=== PATIENT | male | born 1955 | race Caucasian/White ===

== ENCOUNTER → 2018-06-25 | Outpatient (CLI) | payer MEDICARE, OTHER ==
--- NOTE | 2018-06-25 12:03 | NM ---
Nuclear medicine hepatobiliary scan. HISTORY: Pain. DOSAGE: The patient received 1.8 micrograms of CCK and 5.3 mCi of Technetium 99m Choletec. FINDINGS: There is normal hepatic extraction. The gallbladder is seen by 20 minutes. There is bilia ry to bowel clearance by 35 minutes. Ejection fraction is 88%. IMPRESSION: 1. Normal filling of radiotracer within the gallbladder. 2. Ejection fraction of 88% which can occasionally be seen with hyperdynamic gallbladder correlate cl inically.
== END | disposition home or self-care (01) ==
LOC: RADNMMAIN 06:56
PROVIDERS: ATTEND Surgery
DX: K82.8 Other specified diseases of gallbladder (principal)
CPT/HCPCS: 78227; A9537; J2805

== ENCOUNTER 2018-07-01 07:31 | Day surgery (SDC) | payer MEDICARE, OTHER ==
[~2018-07-01 07:31] MED LIST: LACTATED RINGERS 1,000 ML IV SCH; LIDOCAINE 1% 20 ML VIAL (10MG/ML) FOR IV START INTRADERMA PRN
[2018-07-01] MEDS ORDERED: PROPOFOL 10 MG/ML 20 ML VIAL IV ONE (08:26)
[2018-07-01] MEDS ORDERED: LIDOCAINE 1% INJ 10MG/ML (20 ML MDV) ONE (08:26)
--- NOTE | 2018-07-01 08:32 | P.GSHP ---
History of Present Illness H&P Date: 07/01/18 Chief Complaint: GERD This a 63-year-old male who's has issues with reflux. Patient's complaints of GERD symptoms for several years. He presents today for EGD. 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, hx of back pain, states had pancreatitis post ERCP History of Any Multi-Drug Resistant Organisms: None Reported Past Surgical History: Appendectomy, Back Surgery, Orthopedic Surgery Additional Past Surgical History / Comment(s): ERCP, ANTONIO FUNDLAPLICATION, RT KNEE MENISCUS REPAIR, LAMINECTOMY Past Anesthesia/Blood Transfusion Reactions: No Reported Reaction Smoking Status: Never smoker - Past Family History Mother Family Medical History: Cancer Additional Family Medical History / Comment(s): SKIN Father Family Medical History: Cancer Additional Family Medical History / Comment(s): SKIN Brother(s) Family Medical History: Cancer Additional Family Medical History / Comment(s): SKIN Sister(s) Family Medical History: Cancer Additional Family Medical History / Comment(s): SKIN Medications and Allergies Home Medications Medication Instructions Recorded Confirmed Type Gabapentin [Neurontin] 300 mg PO HS PRN 06/28/18 06/28/18 History Multivitamins, Thera [Multivitamin 1 tab PO DAILY 06/28/18 06/28/18 History (formulary)] Naproxen Sodium [Aleve] 220 mg PO Q6H PRN 06/28/18 06/28/18 History Omeprazole 40 mg PO DAILY 06/28/18 06/28/18 History Ondansetron [Zofran] 4 mg PO Q12HR PRN 06/28/18 07/01/18 History Tamsulosin HCl [Flomax] 0.4 mg PO DAILY 06/28/18 06/28/18 History Allergies Allergy/AdvReac Type Severity Reaction Status Date / Time cefuroxime [From Ceftin] Allergy Rash/Hives Verified 07/01/18 07:42 levofloxacin [From Levaquin] Allergy Rash/Hives Verified 07/01/18 07:42 pantoprazole [From Protonix] Allergy Rash/Hives Verified 07/01/18 07:42 prochlorperazine Allergy tongue Verified 07/01/18 07:42 [From Compazine] Swelling Surgical - Exam Vital Signs Temp Pulse Resp BP Pulse Ox 97.6 F 63 16 117/70 96 07/01/18 07:57 07/01/18 07:57 07/01/18 07:57 07/01/18 07:57 07/01/18 07:57 - General well developed, no distress - Eyes PERRL - ENT normal pinna - Neck no masses - Respiratory normal expansion - Cardiovascular Rhythm: regular - Abdomen Abdomen: soft, non tender Assessment and Plan Assessment: GERD. We'll perform EGD.
--- NOTE | 2018-07-01 08:40 | P.OP ---
Date of Procedure: 07/01/18 Preoperative Diagnosis: GERD Postoperative Diagnosis: Antral gastritis Procedure(s) Performed: EGD Anesthesia: MAC Surgeon: Kalia Workman Pathology: other (Antrum, esophagus) Condition: stable Disposition: PACU Description of Procedure: The patient's placed on the endoscopy table lateral position. He received IV sedation. The gastroscope placed oropharynx passed in the esophagus and stomach. Scope was then placed through the pylorus. The first and second portion of the duodenum appeared normal. Scope was then brought back the antrum and this appeared mildly inflamed. A biopsies performed. The scope was then retroflexed and the remainder of the stomach appeared normal. The GE junction was at 40 cm. The proximal esophagus appeared normal. Scope was withdrawn for patient... The distal esophagus appeared normal. A biopsies performed.
== END 2018-07-01 10:11 | disposition home or self-care (01) ==
LOC: ORWHC2ENDO 07:31
PROVIDERS: ATTEND Surgery
DX: K29.50 Unspecified chronic gastritis without bleeding (principal); K21.0 Gastro-esophageal reflux disease with esophagitis; N40.0 Benign prostatic hyperplasia without lower urinary tract symptoms; Z88.3 Allergy status to other anti-infective agents; Z88.8 Allergy status to other drugs, medicaments and biological substances; Z79.1 Long term (current) use of non-steroidal anti-inflammatories (NSAID); Z79.899 Other long term (current) drug therapy
CPT/HCPCS: 88305; 43239; J2001; J2704

== ENCOUNTER 2018-07-19 08:53 | Day surgery (SDC) | payer MEDICARE, OTHER ==
[2018-07-12 09:55] VITALS: BMI 25.0
[~2018-07-19 08:53] MED LIST changes: +DEXAMETHASONE SOD PHOSPHATE 10 MG/ML 1 ML VIAL IV ONE; +HEPARIN SODIUM,PORCINE 5,000 UNIT/ML 1 ML VIAL SQ ONE; -LACTATED RINGERS 1,000 ML IV SCH; +ONDANSETRON 4 MG/2 ML VIAL IVP ONE; +SCOPOLAMINE 1.5MG/72HR PATCH TRANSDERM ONE
[2018-07-19] MEDS: LACTATED RINGERS 1,000 ML IV SCH ×2 (09:31→10:49)
[2018-07-19] MEDS ORDERED: MIDAZOLAM 2 MG/2 ML VIAL IV ONE (09:49)
--- NOTE | 2018-07-19 10:25 | P.GSHP ---
History of Present Illness H&P Date: 07/19/18 Chief Complaint: Right upper quadrant pain This is a 63-year-old male referred from Dr. Cely bang. Patient presents today for laparoscopic cholecystectomy. He's had complaints of right upper quadrant pain. His recent HIDA scan shows abnormal ejection fraction consistent with biliary hypokinesis and chronic cholecystitis. Past Medical History Past Medical History: GERD/Reflux, Prostate Disorder Additional Past Medical History / Comment(s): GALLBLADDER DISORDER History of Any Multi-Drug Resistant Organisms: None Reported Past Surgical History: Appendectomy, Back Surgery, Hernia Repair, Orthopedic Surgery Additional Past Surgical History / Comment(s): EGD-07/01/18. YAIR. RT KNEE SX. VEIN STRIPPING LT LEG. LAMINECTOMY. COLONOSCOPY AND EGD'S Past Anesthesia/Blood Transfusion Reactions: No Reported Reaction Smoking Status: Never smoker - Past Family History Mother Family Medical History: No Reported History Medications and Allergies Home Medications Medication Instructions Recorded Confirmed Type Gabapentin [Neurontin] 300 mg PO HS PRN 06/28/18 07/19/18 History Multivitamins, Thera [Multivitamin 1 tab PO DAILY 06/28/18 07/19/18 History (formulary)] Naproxen Sodium [Aleve] 220 mg PO Q6H PRN 06/28/18 07/19/18 History Omeprazole 40 mg PO DAILY 06/28/18 07/19/18 History Ondansetron [Zofran] 4 mg PO Q12HR PRN 06/28/18 07/19/18 History Tamsulosin HCl [Flomax] 0.4 mg PO DAILY 06/28/18 07/19/18 History Allergies Allergy/AdvReac Type Severity Reaction Status Date / Time cefuroxime [From Ceftin] Allergy Rash/Hives Verified 07/19/18 09:27 levofloxacin [From Levaquin] Allergy Rash/Hives Verified 07/19/18 09:27 pantoprazole [From Protonix] Allergy Rash/Hives Verified 07/19/18 09:27 prochlorperazine Allergy tongue Verified 07/19/18 09:27 [From Compazine] Swelling Surgical - Exam Vital Signs Temp Pulse Resp BP Pulse Ox 97.5 F L 52 L 16 105/61 97 07/19/18 09:34 07/19/18 09:34 07/19/18 09:34 07/19/18 09:34 07/19/18 09:34 - General well developed, no distress - Eyes PERRL - ENT normal pinna - Neck no masses - Respiratory normal expansion - Cardiovascular Rhythm: regular - Abdomen Abdomen: soft, non tender Assessment and Plan Assessment: Abnormal HIDA scan Right quadrant pain We'll perform laparoscopic cholecystectomy.
[2018-07-19] MEDS ORDERED: HYDROmorphone (PF) 1 MG/ML ONE (10:54)
[2018-07-19] MEDS ORDERED: KETOROLAC 30 MG/ML 1 ML VIAL ONE (10:54)
[2018-07-19] MEDS ORDERED: GLYCOPYRROLATE 0.2 MG/ML 2 ML VIAL ONE (10:54)
[2018-07-19] MEDS ORDERED: NEOSTIGMINE 1 MG/ML 10 ML VIAL ONE (10:54)
[2018-07-19] MEDS ORDERED: PROPOFOL 10 MG/ML 20 ML VIAL IV ONE (10:54)
[2018-07-19] MEDS ORDERED: ROCURONIUM BROMIDE 10 MG/ML 10 ML VIAL IV ONE (10:54)
[2018-07-19] MEDS ORDERED: MIDAZOLAM 2 MG/2 ML VIAL ONE (10:54)
[2018-07-19] MEDS ORDERED: SUCCINYLCHOLINE CHLORIDE 100 MG/5 ML SYR IV ONE (10:54)
[2018-07-19] MEDS ORDERED: fentaNYL (PF) 50 MCG/ML 2 ML AMP ONE (10:54)
[2018-07-19] MEDS ORDERED: LIDOCAINE 1% INJ 10MG/ML (20 ML MDV) ONE (10:54)
[2018-07-19] MEDS: CLINDAMYCIN 900 MG in DEXTROSE 5% IN WATER 50 ML IVPB ONE ×4 (10:54→11:00)
[2018-07-19] MEDS ORDERED: LABETALOL 5 MG/ML VIAL MDV ONE (10:54)
[2018-07-19] MEDS ORDERED: BUPIVACAIN-EPI 0.25%-1:200,000 30 ML VIAL SQ ONE ×2 (10:59→11:12)
[2018-07-19] MEDS: GENTAMICIN 400 MG in SODIUM CHLORIDE 0.9% 100 ML IVPB ONE ×2 (11:00→11:11)
[2018-07-19] MEDS ORDERED: LACTATED RINGERS 1,000 ML IV ONE (11:33)
--- NOTE | 2018-07-19 11:36 | P.OP ---
Date of Procedure: 07/19/18 Preoperative Diagnosis: Cholecystitis Postoperative Diagnosis: Cholecystitis Procedure(s) Performed: Laparoscopic cholecystectomy Anesthesia: BHAVNA Surgeon: Kalia Workman Pathology: other (Gallbladder) Condition: stable Disposition: PACU Description of Procedure: The patient was placed on the operating table. The patient received a general endotracheal tube anesthesia. The patients abdomen was prepped and draped in the usual sterile fashion. Through an infraumbilical stab incision, the fascia of the anterior abdominal wall was grasped with a pair of Kochers and then the Veress needle was placed in the peritoneal cavity. Position of the Veress needle was confirmed with positive drop test. The abdomen was then insufflated. After adequate insufflation, the 10 mm trocar was placed in the peritoneal cavity. Following this the laparoscope was placed in the peritoneal cavity. The patient was placed in the head-up, right side up position and then a 5 mm trocar was placed in the right lateral and right subcostal position under direct visualization. A 8 mm trocar was placed in the epigastric position. The gallbladder was grasped in the fundus and infundibulum. Traction on the gallbladder was placed in the lateral and the cephalad positions. The triangle of Calot was visualized.. The cystic duct was bluntly dissected until the union of the cystic duct and common bile duct was seen. The cystic duct was then divided and sealed with the Harmonic scissors. A PDS Endoloop was then placed throughout the cystic duct stump. The cystic artery divided and sealed with the Harmonic scissors. The gallbladder was then removed from the liver bed using Harmonic scissors. The gallbladder was then extracted through the epigastric port site. Operative field was checked for any bleeding spots and Harmonic scissors was used to coagulate the liver bed. The abdomen was irrigated. The trocars were removed. The skin was closed using interrupted 3-0 Vicryl suture. Dermabond dressing were applied. The patient tolerated the procedure well.
[2018-07-19] MEDS: HYDROmorphone 0.5 MG/0.5 ML SYRINGE IVP PRN ×2 (11:40→11:50)
[2018-07-19 11:52] VITALS: TEMP 97.1
[2018-07-19] MEDS ORDERED: PROMETHAZINE INJ 25 MG/ML 1 ML VIAL IVPB ONE (12:57)
[2018-07-19 13:24] VITALS: RESP 18
[2018-07-19 13:32] VITALS: BP 135/82; PULSE 48
== END 2018-07-19 13:59 | disposition home or self-care (01) ==
LOC: OR 08:53
PROVIDERS: ATTEND Surgery
DX: K81.1 Chronic cholecystitis (principal); K21.9 Gastro-esophageal reflux disease without esophagitis; N40.0 Benign prostatic hyperplasia without lower urinary tract symptoms; Z88.3 Allergy status to other anti-infective agents; Z88.8 Allergy status to other drugs, medicaments and biological substances; Z79.899 Other long term (current) drug therapy
CPT/HCPCS: 88304; 47562; J2250; J1100; J2550; J2710; J2405; J2001; J3010; J1885; J1580; J1170 ×2; J0330; J2704